=== PATIENT | male | born 1950 | race Caucasian/White ===

== ENCOUNTER 2018-10-02 23:37 | Emergency (ER) | payer MEDICARE, OTHER ==
--- NOTE | 2018-10-03 01:27 | ERPHSYRPT ---
- History of Present Illness Source: patient Exam Limitations: no limitations Patient Subjective Stated Complaint: pt states he took meds at 1845. eliquis, gabapentin, augmentin, and laxitives. went to sleep in chair and took medications at 2230 that were meant for his am dose which include eliquis, gabapenin, augmentin, lisinopril amlodipine, and metoprololol. and portachloride plus augmentin Triage Nursing Assessment: pt states he feels perfectly normal. pt oriented x3 with no complaints Physician History: Pt is a 68 y/o male that presented to the ED with accidental OD. Pt took his evening meds, that included Tikosyn and Eliquis, and fell asleep on his recliner. He woke up about 3 hrs later and thought it is AM, and took his AM meds, that meant extra dose of Tikosyn and Eliquis, as well as his BP meds. Secondary to that he came to the ER. Timing/Duration: today Severity: moderate Associated Symptoms: denies symptoms Allergies/Adverse Reactions: duloxetine [From Cymbalta] Allergy (Verified 10/03/18 01:09) fenofibrate Allergy (Verified 10/03/18 01:09) simvastatin [From Zocor] Allergy (Verified 10/03/18 01:09) Home Medications: Amlodipine Besylate 10/03/18 [History] Apixaban [Eliquis] 10/03/18 [History] Dofetilide 10/03/18 [History] Gabapentin 10/03/18 [History] Insulin Glargine,Hum.rec.anlog [Vijay Flores] 40 QAM 10/03/18 [History] Lisinopril 10/03/18 [History] Metoprolol Succinate 25 mg Xl* [Toprol-Xl 25MG Tablets] 10/03/18 [History] Potassium Chloride 10 Meq Tab* [Klor Con 10 MEQ] 10/03/18 [History] Pravastatin Sodium 10/03/18 [History] Hx Tetanus, Diphtheria Vaccination/Date Given: Yes Hx Influenza Vaccination/Date Given: Yes Hx Pneumococcal Vaccination/Date Given: Yes Immunizations Up to Date: Yes - Review of Systems Constitutional: No Fever, No Chills Eyes: No Symptoms Ears, Nose, & Throat: No Symptoms Respiratory: No Cough, No Dyspnea Cardiac: No Chest Pain, No Edema, No Syncope Abdominal/Gastrointestinal: No Abdominal Pain, No Nausea, No Vomiting, No Diarrhea Genitourinary Symptoms: No Dysuria Musculoskeletal: No Back Pain, No Neck Pain Neurological: No Dizziness, No Focal Weakness, No Sensory Changes - Past Medical History Pertinent Past Medical History: Yes Neurological History: Peripheral Neuropathy ENT History: No Pertinent History Cardiac History: Arrhythmia, High Cholesterol, Hypertension Respiratory History: Asthma, Sleep Apnea Endocrine Medical History: Diabetes Type II Musculoskeletal History: Arthritis GI Medical History: No Pertinent History History: No Pertinent History Psycho-Social History: No Pertinent History Male Reproductive Disorders: No Pertinent History - Past Surgical History Past Surgical History: Yes Genitourinary: No Pertinent History Musculoskeletal: Orthopedic Surgery Male Surgical History: No Pertinent History Other Surgical History: ablation cardiac 2018, bilat knee replacements 2016, - Social History Smoking Status: Never smoker Exposure to second hand smoke: No Drug Use: none Patient Lives Alone: Yes - Nursing Vital Signs Nursing Vital Signs: Initial Vital Signs Temperature 98.1 F 10/03/18 00:52 Pulse Rate 75 10/03/18 00:52 Respiratory Rate 18 10/03/18 00:52 Blood Pressure 145/70 10/03/18 00:52 O2 Sat by Pulse Oximetry 95 10/03/18 00:52 Pain Scale Pain Intensity 0 - Physical Exam General Appearance: no apparent distress, alert Eye Exam: PERRL/EOMI, eyes nml inspection Ears, Nose, Throat Exam: normal ENT inspection, TMs normal, pharynx normal, moist mucous membranes Neck Exam: normal inspection, non-tender, supple, full range of motion Respiratory Exam: normal breath sounds, lungs clear, No respiratory distress Cardiovascular Exam: regular rate/rhythm, normal heart sounds, normal peripheral pulses Gastrointestinal/Abdomen Exam: soft, normal bowel sounds, No tenderness, No mass Extremity Exam: normal inspection, normal range of motion, pelvis stable Neurologic Exam: alert, oriented x 3, cooperative, normal mood/affect, nml cerebellar function, nml station & gait, sensation nml, No motor deficits SpO2: 95 - Course Nursing assessment & vital signs reviewed: Yes - Progress Progress: unchanged Progress Note: 10/03/18 01:25 Pt is a 68 y/o that took his Tikosyn double the dose and Eliquis double the dose , by mistake. He will be followed in the ED for a few hours, to make sure his tele strip is normal and pt is not developing QT prolongation or Torsade. 10/03/18 05:49 Pt was watched through the night. Vitals are stable. He will be d/c to home, and he should contact his daytime caregiver in the AM, for more recommendations. Will see patient in: office Counseled pt/family regarding: need for follow-up - Departure Time of Disposition: 07:00 Departure Disposition: Home Clinical Impression: Accidental overdose Condition: Stable Critical Care Time: No Referrals: ZARA GRIFFITH MD [Primary Care Provider] - Additional Instructions: F/U with daytime caregiver as the office opens for more recommendations.
[2018-10-03 04:49] VITALS: BP 108/72; PULSE 61
[2018-10-03 05:52] VITALS: O2SAT 95
== END 2018-10-03 06:27 | disposition home or self-care (01) ==
LOC: ED 23:37
DX: T50.991A Poisoning by other drugs, medicaments and biological substances, accidental (unintentional), initial encounter (principal); Z79.899 Other long term (current) drug therapy; E78.00 Pure hypercholesterolemia, unspecified; I10 Essential (primary) hypertension; E11.9 Type 2 diabetes mellitus without complications
CPT/HCPCS: 99284

== ENCOUNTER 2020-05-25 06:14 | Day surgery (SDC) | payer MEDICARE, OTHER ==
[~2020-05-25 06:14] MED LIST: DIPRIVAN 200 MG/20 ML IV ONE; Ephedrine Sulfate 50 MG/ML ONE
[2020-05-25] MEDS ORDERED: Lactated Ringers 1,000 ML IV SCH (06:30)
[2020-05-25 09:02] VITALS: BP 140/76; PULSE 66; O2SAT 97
--- NOTE | 2020-05-25 09:37 | OP ---
SURGERY DATE/TIME: 05/25/2020 0800 PREOPERATIVE DIAGNOSIS: Screening colonoscopy. POSTOPERATIVE DIAGNOSIS: Cecal polyp. PROCEDURE: Colonoscopy. SURGEON: Johnnie Frost M.D. ANESTHESIA: MAC by Sreekanth Ramirez CRNA. ESTIMATED BLOOD LOSS: Minimal. SPECIMENS: Hot forceps polypectomy from the cecum. DESCRIPTION OF PROCEDURE: After informed written consent was obtained, the patient was taken to the endoscopy suite. He was placed in the left lateral decubitus position and underwent monitored anesthesia. Digital rectal exam showed normal sphincter tone and no internal lesions. The scope was inserted into the rectum and sequentially the entire colonic mucosa was traversed. The level of cecum was reached and verified with direct visualization of ileocecal valve. There was a small sessile polyp on a fold just at the edge of the ileocecal valve this was grasped with forceps cauterized and removed in its entirety with good hemostasis and complete removal of the lesion. The remainder of the mucosa was closely inspected. There were some scattered diverticula but no other abnormalities present upon withdrawal. Retroflexion was performed prior to withdrawal and showed no internal lesions. The prep was noted to be fair with some liquid stool present. The scope was removed and the patient was transferred to the recovery room in good condition.
== END 2020-05-25 09:10 | disposition home or self-care (01) ==
LOC: SDC 06:14
PROVIDERS: ATTEND Family Medicine
DX: Z12.11 Encounter for screening for malignant neoplasm of colon (principal); D12.0 Benign neoplasm of cecum; E11.9 Type 2 diabetes mellitus without complications; Z79.899 Other long term (current) drug therapy
CPT/HCPCS: 82962; 88305; J2704

== ENCOUNTER 2023-09-26 09:19 | Day surgery (SDC) | payer MEDICARE, OTHER ==
[2023-09-26] MEDS ORDERED: Depo-Medrol 40 MG/ML IM ONE (09:20)
[2023-09-26] MEDS ORDERED: BUPIVACAINE 0.5% VIAL IJ ONE (09:20)
[2023-09-26] MEDS ORDERED: DIPRIVAN 200 MG/20 ML IV ONE (11:30)
[2023-09-26] MEDS ORDERED: Lactated Ringers 1,000 ML IV ONE (12:05)
--- NOTE | 2023-09-26 12:55 | XRAY ---
Indication: Bilateral SI joint injection. Intraoperative fluoroscopy provided for 30 seconds. 5 digital spot image submitted for interpretation demonstrates posterior needle tip projecting over the left and right SI joint. Small amount of contrast injected for needle tip placement. Correlate with intraoperative findings/report.
--- NOTE | 2023-09-26 13:24 | XRAY ---
30 seconds of fluoroscopy was used in surgery for a bilateral sacroiliac joint injection.
== END 2023-09-26 12:00 | disposition home or self-care (01) ==
LOC: SDC-PAIN 09:19
PROVIDERS: ATTEND Psychiatry & Neurology Pain Medicine
DX: M46.1 Sacroiliitis, not elsewhere classified (principal); E11.9 Type 2 diabetes mellitus without complications
CPT/HCPCS: 01992; 27096; 72202; 77002; 82947; 99100; G0260; J1030; J2704; Q9966

== ENCOUNTER 2023-10-30 10:27 | Day surgery (SDC) | payer MEDICARE, OTHER ==
[2023-10-30] MEDS ORDERED: LIDOCAINE HCL 2% 100 MG/5 ML IJ ONE (10:28)
[2023-10-30] MEDS ORDERED: Decadron 4 MG INJ IV ONE (10:28)
[2023-10-30] MEDS ORDERED: DIPRIVAN 200 MG/20 ML IV ONE (13:50)
[2023-10-30] MEDS ORDERED: Lactated Ringers 1,000 ML IV ONE (15:03)
--- NOTE | 2023-10-30 15:18 | XRAY ---
Indication: Right C2-C4 MBB Intraoperative fluoroscopy provided for 1 minute 1seconds. 3 digital spot images submitted for interpretation demonstrates posterior needle tips projecting over the expected right C2-C4. Correlate with intraoperative findings/report.
--- NOTE | 2023-10-30 16:46 | XRAY ---
One minute and 1 second of fluoroscopy was used in surgery for a right C2-C4 MBB.
== END 2023-10-30 14:26 | disposition home or self-care (01) ==
LOC: SDC-PAIN 10:27
PROVIDERS: ATTEND Psychiatry & Neurology Pain Medicine
DX: M47.812 Spondylosis without myelopathy or radiculopathy, cervical region (principal); E11.9 Type 2 diabetes mellitus without complications
CPT/HCPCS: 64490; 64491; 72040; 77002; 82947; J1100; J2704

== ENCOUNTER 2023-12-04 10:13 | Day surgery (SDC) | payer MEDICARE, OTHER ==
[2023-12-04] MEDS ORDERED: LIDOCAINE HCL 2% 100 MG/5 ML IJ ONE (10:14)
[2023-12-04] MEDS ORDERED: Decadron 4 MG INJ IV ONE (10:14)
[2023-12-04] MEDS ORDERED: DIPRIVAN 200 MG/20 ML IV ONE (12:16)
--- NOTE | 2023-12-04 13:13 | XRAY ---
Indication: Left C2-C4 MBB. Intraoperative fluoroscopy provided for 39 seconds. 2 digital spot images submitted for interpretation demonstrates posterior needle tips projecting over the expected left C2-C4 nerve roots. Correlate with intraoperative findings/report.
--- NOTE | 2023-12-04 13:14 | XRAY ---
39 seconds of fluoroscopy was used in surgery for a left C2-C4 MBB.
[2023-12-04] MEDS ORDERED: Lactated Ringers 1,000 ML IV ONE (13:46)
== END 2023-12-04 12:53 | disposition home or self-care (01) ==
LOC: SDC-PAIN 10:13
PROVIDERS: ATTEND Psychiatry & Neurology Pain Medicine
DX: M47.812 Spondylosis without myelopathy or radiculopathy, cervical region (principal); E11.9 Type 2 diabetes mellitus without complications
CPT/HCPCS: 64490; 64491; 72040; 77002; 82947; J1100; J2704

== ENCOUNTER 2024-01-08 10:08 | Day surgery (SDC) | payer MEDICARE, OTHER ==
[2024-01-08] MEDS ORDERED: Decadron 4 MG INJ IV ONE (10:09)
[2024-01-08] MEDS ORDERED: BUPIVACAINE 0.5% VIAL IJ ONE (10:09)
[2024-01-08] MEDS ORDERED: Lactated Ringers 1,000 ML IV ONE (11:16)
[2024-01-08] MEDS ORDERED: DIPRIVAN 200 MG/20 ML IV ONE ×2 (11:27→11:41)
--- NOTE | 2024-01-08 12:54 | XRAY ---
Indication: Left C2-C4 MBB. Intraoperative fluoroscopy provided 33 seconds. 4 digital spot image submitted for interpretation demonstrates posterior needle tips projecting over the expected left C2-C4 nerve roots. Correlate with intraoperative findings/report.
--- NOTE | 2024-01-08 13:52 | XRAY ---
33 seconds of fluoroscopy was used in surgery for a left C2-C4 MBB.
== END 2024-01-08 11:57 | disposition home or self-care (01) ==
LOC: SDC-PAIN 10:08
PROVIDERS: ATTEND Psychiatry & Neurology Pain Medicine
DX: M47.812 Spondylosis without myelopathy or radiculopathy, cervical region (principal); E11.9 Type 2 diabetes mellitus without complications
CPT/HCPCS: 64490; 64491; 72040; 77002; 82947; J1100; J2704

== ENCOUNTER 2024-02-19 09:09 | Day surgery (SDC) | payer MEDICARE, OTHER ==
[2024-02-19] MEDS ORDERED: DIPRIVAN 200 MG/20 ML IV ONE (11:26)
[2024-02-19] MEDS ORDERED: Lactated Ringers 1,000 ML IV ONE (12:55)
--- NOTE | 2024-02-19 13:32 | XRAY ---
Indication: Right C2-C4 MBB. Intraoperative fluoroscopy provided for 20 seconds. 2 digital spot image submitted for interpretation demonstrates posterior needle tips projecting over the expected right C2-C4 nerve roots. Correlate with intraoperative findings/report.
--- NOTE | 2024-02-19 14:13 | XRAY ---
20 seconds of fluoroscopy was used in surgery for a right C2-C4 MBB.
== END 2024-02-19 11:58 | disposition home or self-care (01) ==
LOC: SDC-PAIN 09:09
PROVIDERS: ATTEND Psychiatry & Neurology Pain Medicine
DX: M47.812 Spondylosis without myelopathy or radiculopathy, cervical region (principal); E11.9 Type 2 diabetes mellitus without complications
CPT/HCPCS: 64490; 64491; 72040; 77002; 82947; J2704

== ENCOUNTER 2024-04-08 08:51 | Day surgery (SDC) | payer MEDICARE, OTHER ==
[2024-04-08] MEDS ORDERED: BUPIVACAINE 0.5% VIAL IJ ONE (08:52)
[2024-04-08] MEDS ORDERED: Decadron 4 MG INJ IV ONE (08:52)
[2024-04-08] MEDS ORDERED: LIDOCAINE HCL 1% 50 MG/5 ML VL PF IJ ONE (08:52)
[2024-04-08] MEDS ORDERED: Lactated Ringers 1,000 ML IV ONE (10:39)
[2024-04-08] MEDS ORDERED: DIPRIVAN 200 MG/20 ML IV ONE ×2 (10:50→11:03)
--- NOTE | 2024-04-08 11:50 | XRAY ---
Indication: Left C2-C4 RFA. Intraoperative fluoroscopy provided for 34 seconds. 4 digital spot images submitted for interpretation demonstrates posterior needle tips projecting over the expected left C2-C4 nerve roots. Correlate with intraoperative findings/report.
--- NOTE | 2024-04-08 12:06 | XRAY ---
34 seconds of fluoroscopy was used in surgery for a left C2-C4 RFA.
== END 2024-04-08 11:30 ==
LOC: SDC-PAIN 08:51
PROVIDERS: ATTEND Psychiatry & Neurology Pain Medicine
DX: M47.812 Spondylosis without myelopathy or radiculopathy, cervical region (principal); E11.9 Type 2 diabetes mellitus without complications
CPT/HCPCS: 64633; 64634; 72040; 77002; 82947; 99100; J1100; J2001; J2704

== ENCOUNTER 2024-04-22 09:31 | Day surgery (SDC) | payer MEDICARE, OTHER ==
[2024-04-22] MEDS ORDERED: BUPIVACAINE 0.5% VIAL IJ ONE (09:32)
[2024-04-22] MEDS ORDERED: Decadron 4 MG INJ IV ONE (09:32)
[2024-04-22] MEDS ORDERED: LIDOCAINE HCL 1% 50 MG/5 ML VL PF IJ ONE (09:32)
[2024-04-22] MEDS ORDERED: DIPRIVAN 200 MG/20 ML IV ONE (11:30)
[2024-04-22] MEDS ORDERED: Lactated Ringers 1,000 ML IV ONE (12:11)
--- NOTE | 2024-04-22 13:07 | XRAY ---
Indication: Right C2-C4 RFA. Intraoperative fluoroscopy provided for 23 seconds. 5 digital spot images submitted for interpretation demonstrates posterior needle tips projecting over the expected right C2-C4 nerve roots. Correlate with intraoperative findings/report.
--- NOTE | 2024-04-22 13:09 | XRAY ---
23 seconds of fluoroscopy was used in surgery for a right C2-C4 RFA.
== END 2024-04-22 12:12 | disposition home or self-care (01) ==
LOC: SDC-PAIN 09:31
PROVIDERS: ATTEND Psychiatry & Neurology Pain Medicine
DX: M47.812 Spondylosis without myelopathy or radiculopathy, cervical region (principal); E11.9 Type 2 diabetes mellitus without complications
CPT/HCPCS: 64633; 64634; 72040; 77002; 82947; 99100; J1100; J2001; J2704

== ENCOUNTER 2024-09-10 15:00 | Day surgery (SDC) | payer MEDICARE, OTHER ==
[2024-09-10] MEDS ORDERED: LIDOCAINE HCL 1% AMPUL 5 ML IJ ONE (15:01)
[2024-09-10] MEDS ORDERED: Depo-Medrol 40 MG/ML IM ONE (15:01)
[2024-09-10] MEDS ORDERED: BUPIVACAINE 0.5% VIAL IJ ONE (15:01)
--- NOTE | 2024-09-10 16:45 | XRAY ---
Indication: Bilateral hip injection. Intraoperative fluoroscopy provided for 27 seconds. 4 digital spot image submitted for interpretation demonstrates needle tips projecting lateral to left and right femur necks. Small amount of contrast injected for needle tip placement. Correlate with intraoperative findings/report.
--- NOTE | 2024-09-11 09:23 | XRAY ---
27 seconds of fluoroscopy was used in surgery for bilateral hip intra-articular injections.
== END 2024-09-10 16:30 | disposition home or self-care (01) ==
LOC: SDC-PAIN 15:00
PROVIDERS: ATTEND Psychiatry & Neurology Pain Medicine
DX: M16.0 Bilateral primary osteoarthritis of hip (principal); E11.9 Type 2 diabetes mellitus without complications
CPT/HCPCS: 20610; 73521; 77002; 82947; Q9966

== ENCOUNTER 2024-12-02 15:13 | Day surgery (SDC) | payer MEDICARE, OTHER ==
[2024-12-02] MEDS ORDERED: BUPIVACAINE 0.5% VIAL IJ ONE (15:14)
[2024-12-02] MEDS ORDERED: LIDOCAINE HCL 1% AMPUL 5 ML IJ ONE (15:14)
[2024-12-02] MEDS ORDERED: Depo-Medrol 40 MG/ML IM ONE (15:14)
--- NOTE | 2024-12-02 20:49 | XRAY ---
Indication: Right hip injection. Intraoperative fluoroscopy provided for 21 seconds. Single digital spot image submitted for interpretation demonstrates needle tip projecting lateral to right femur neck. Small amount of contrast injected for needle tip placement. Correlate with intraoperative findings/report.
--- NOTE | 2024-12-03 19:25 | XRAY ---
21 seconds of fluoroscopy was used in surgery for a right intra-articular hip injection.
== END 2024-12-02 18:18 | disposition home or self-care (01) ==
LOC: SDC-PAIN 15:13
PROVIDERS: ATTEND Psychiatry & Neurology Pain Medicine
DX: M16.11 Unilateral primary osteoarthritis, right hip (principal); E11.9 Type 2 diabetes mellitus without complications
CPT/HCPCS: 20610; 73501; 77002; 82947; Q9966

== ENCOUNTER 2025-06-23 09:48 | Day surgery (SDC) | payer MEDICARE, OTHER ==
[2025-06-23] MEDS ORDERED: LIDOCAINE HCL 2% 100 MG/5 ML IJ ONE (09:49)
[2025-06-23] MEDS ORDERED: methylPREDNISolone acetate IM ONE (09:49)
[2025-06-23] MEDS ORDERED: propofoL IV ONE (12:02)
--- NOTE | 2025-06-23 13:56 | XRAY ---
Indication: Bilateral L4-S1 MBB. Intraoperative fluoroscopy provided for 8 seconds. Single digital spot image submitted for interpretation demonstrates posterior needle tips projecting over expected left and right L4-S1 nerve roots. Correlate with intraoperative findings/report.
--- NOTE | 2025-06-23 14:00 | XRAY ---
8 seconds of fluoroscopy was used in surgery for a bilateral L4-S1 MBB.
[2025-06-23] MEDS ORDERED: Lactated Ringers 1,000 ML IV ONE (14:02)
== END 2025-06-23 12:30 | disposition home or self-care (01) ==
LOC: SDC-PAIN 09:48
PROVIDERS: ATTEND Psychiatry & Neurology Pain Medicine
DX: M47.817 Spondylosis without myelopathy or radiculopathy, lumbosacral region (principal); E11.9 Type 2 diabetes mellitus without complications

== ENCOUNTER 2025-07-21 09:52 | Day surgery (SDC) | payer MEDICARE, OTHER ==
[2025-07-21] MEDS ORDERED: BUPIVACAINE 0.5% VIAL IJ ONE (09:53)
[2025-07-21] MEDS ORDERED: methylPREDNISolone acetate IM ONE (09:53)
[2025-07-21] MEDS ORDERED: propofoL IV ONE (12:02)
[2025-07-21] MEDS ORDERED: Xylocaine-Mpf 2% 5 Ml Vial ONE (12:04)
[2025-07-21] MEDS ORDERED: Lactated Ringers 1,000 ML IV ONE (12:44)
--- NOTE | 2025-07-21 14:30 | XRAY ---
Indication: Bilateral L4-S1 MBB. Intraoperative fluoroscopy provided for 14 seconds. Single digital spot image submitted for interpretation demonstrates posterior needle tips projecting over expected left and right L4-S1 nerve roots. Correlate with intraoperative findings/report.
--- NOTE | 2025-07-21 14:35 | XRAY ---
14 seconds of fluoroscopy was used in surgery for a bilateral L4-S1 MBB.
== END 2025-07-21 12:35 | disposition home or self-care (01) ==
LOC: SDC-PAIN 09:52
PROVIDERS: ATTEND Psychiatry & Neurology Pain Medicine
DX: M47.817 Spondylosis without myelopathy or radiculopathy, lumbosacral region (principal); E11.9 Type 2 diabetes mellitus without complications